=== PATIENT | female | born 1965 ===

== ENCOUNTER 2017-05-20 06:49 | Day surgery (SDC) | payer MEDICARE ==
[~2017-05-20 06:49] MED LIST: ANCEF/STERILE WATER 2 GM/20 ML 2 GM/20 ML SYRINGE IV NR; NACL 0.9% 1000 ML 1,000 ML IV SCH
[2017-05-20 07:52] LABS: Basophils # (Auto) 0.1 K/mm3 (0.0-0.1); Basophils % (Auto) 1.2 % (0.0-1.8); Eosinophils # (Auto) 0.2 K/mm3 (0.0-0.4); Eosinophils % (Auto) 4.4 % (0.0-4.3); Hematocrit 38.2 % (30.3-42.9); Hemoglobin 12.5 gm/dl (10.1-14.3); Lymphocytes # (Auto) 1.2 K/mm3 (1.2-5.4); Lymphocytes % (Auto) 25.1 % (13.4-35.0); Mean Corpuscular HGB Conc 33 % (30-34); Mean Corpuscular Hemoglobin 32 pg (28-32); Mean Corpuscular Volume 97 fl (79-97); Monocytes # (Auto) 0.8 K/mm3 (0.0-0.8); Monocytes % (Auto) 15.9 % (0.0-7.3); Red Blood Count 3.94 M/mm3 (3.65-5.03); Red Cell Distribution Width 17.5 % (13.2-15.2)
[2017-05-20 07:53] LABS: Platelet Count 70 K/mm3 (140-440)
[2017-05-20] MEDS ORDERED: NACL 0.9% 500 ML 500 ML IV SCH (08:00)
[2017-05-20 08:01] LABS: INR 1.2 (0.87-1.13)
[2017-05-20 08:02] LABS: Partial Thromboplastin Time 36.4 Sec. (24.2-36.6)
[2017-05-20 08:10] LABS: BUN/Creatinine Ratio 30; Blood Urea Nitrogen 15 mg/dL (7-17); Calcium 7.6 mg/dL (8.4-10.2); Hemolysis Index 8
[2017-05-20] MEDS ORDERED: SUBLIMAZE ONE (08:34)
[2017-05-20] MEDS ORDERED: VERSED ONE (08:34)
[2017-05-20] MEDS ORDERED: NACL 0.9% 500 ML 500 ML ONE (08:34)
[2017-05-20] MEDS ORDERED: NACL 0.9% 500 ML IR ONE (08:35)
[2017-05-20] MEDS ORDERED: XYLOCAINE 2% INFILTRATI ONE (08:35)
[2017-05-20] MEDS ORDERED: LEVAQUIN 500MG/100ML 500 MG/100 ML BAG IV ONE (08:50)
[2017-05-20] MEDS ORDERED: ANCEF/STERILE WATER 2 GM/20 ML 2 GM/20 ML SYRINGE IV ONE (08:50)
[2017-05-20] MEDS ORDERED: ALBURX 25% (ALBUMIN) IV ONE ×4 (09:00→10:00)
--- NOTE | 2017-05-20 10:32 | Short Stay Summary ---
Short Stay Documentation Date of service: 05/20/17 Narrative H&P: 51-year-old female with intractable ascites, intermittent hepatic encephalopathy , and end-stage renal disease intermittently on hospice. She is not a candidate for a TIPS procedure given the hepatic encephalopathy. Her heat treater apprentice, Dr. Pepe, requested tunneled peritoneal catheter for symptomatic relief of ascites. Patient will be soon transitioning to hospice care. - History Past Medical History: liver disease (ESLD) - Allergies and Medications Current Medications: Allergies morphine Allergy (Severe, Verified 05/20/17 07:16) Swelling- tongue and throat Home Medications Medication Instructions Recorded Confirmed Last Taken Type Baclofen [Lioresal] 10 mg PO TID 05/20/17 05/20/17 05/19/17 History Famotidine [Pepcid] 20 mg PO BID 05/20/17 05/20/17 05/19/17 History Furosemide [Lasix] 20 mg PO QDAY 05/20/17 05/20/17 05/19/17 History Lactulose [Constulose] 10 gm PO BID 05/20/17 05/20/17 05/19/17 History Potassium Chloride [Klor-Con 10] 10 meq PO QDAY 05/20/17 05/20/17 05/19/17 History Spironolactone [Aldactone] 50 mg PO QDAY 05/20/17 05/20/17 05/19/17 History Active Medications Cefazolin Sodium (Ancef/Sterile Water 2 Gm/20 Ml) 2 gm in 20 mls @ 80 mls/hr IV PREOP NR PRN Reason: Protocol Stop: 05/20/17 23:59 Sodium Chloride (Nacl 0.9% 500 Ml) 500 mls @ 50 mls/hr IV DIRECT JESSICA Last Admin: 05/20/17 08:50 Dose: 50 mls/hr - Physical exam General appearance: no acute distress Lungs: Normal air movement Gastrointestinal: distended (ascites) - Brief post op/procedure progress note Date of procedure: 05/20/17 Pre-op diagnosis: Intractable ascites Post-op diagnosis: same Procedure: tunneled ASPIRA peritoneal catheter Anesthesia: local (w/ conscious sedation) Surgeon: JESSE WALDRON Estimated blood loss: minimal Condition: stable - Hospital course Hospital course: Ready for discharge. - Disposition Condition at discharge: Stable Disposition: [id number] HOME UNDER HOME HLTH - Discharge Diagnoses (1) End stage liver disease Status: Acute (2) Ascites Status: Acute Short Stay Discharge Plan Activity: advance as tolerated Weight Bearing Status: Weight Bear as Tolerated Diet: low salt, other (restrict fluid to 1.5 L per day) Wound: keep clean and dry (DO NOT GET CATHETER WET ; MUST TAKE SPONGE BATHS, NO SHOWERS) Follow up with: JESSE WALDRON MD [Primary Care Provider] - 7 Days
--- NOTE | 2017-05-20 10:39 | Operative Report ---
Operative Report Operative Report: EXAM: 1. Ultrasound-guided access of the right upper quadrant of the peritoneal cavity 2. Placement of a tunneled cuffed peritoneal catheter (ASPIRA) 3. Removal of 5.5 L of straw yellow colored fluid from the peritoneal cavity DATE: 05/20/17 [employer]ATION [employer]OL[employer] INSTRUCTOR: JESSE WALDRON MD INDICATION: 51 year old female with end stage liver disease with refractory ascites requiring large volume paracentesis. Intermittently in hospice with discharge back to home health to allow for paracentesis with readmission back to hospice. History of hepatic encephalopathy precludes TIPS. Request by her technology director for tunneled peritoneal catheter. MEDICATIONS: Please see nursing report for full details. DEVICES: None CONTRAST: None PROCEDURE: The risks, benefits, and alternatives were discussed with the patient; written informed consent was obtained. The patient was brought to the angiography suite and placed in a supine position. The patient was prepped and draped in a sterile fashion. Ultrasound was used to evaluate the abdomen which demonstrated ascitic fluid. I anesthetized the abdomen. The right upper quadrant of the peritoneal cavity was accessed with a 21-gauge micropuncture needle under direct ultrasound guidance. 0.018 inch wire was passed into the peritoneal cavity. 5 [place]ian transitional dilator was exchanged with the needle. Wire and inner dilator were removed. 0.035 inch Amplatz wire was advanced through the transitional dilator into the peritoneal cavity. Flow switch was advanced over the wire and used to lock the Amplatz wire on the transitional dilator. An appropriate dermatotomy site was selected medial and slightly superior to the puncture site. The area was anesthetized with 1% lidocaine. The track was anesthetized with 1% lidocaine. Dermatotomy was made. The ASPIRA catheter was connected to the metal tunneler and used to tunnel from the dermatotomy to the peritoneal puncture site. Over the Amplatz wire, the peritoneal puncture site was dilated with ultimate placement of a peel-away sheath and removal of the wire and introducer. The catheter was advanced through the peritoneal peel-away sheath into the peritoneal cavity. The sheath was broken and pulled away. The catheter was clamped and the plastic stiffener was removed. The catheter was cut and attached to the appropriate hub. The puncture site was then closed with 3-0 Vicryl with deep interrupted and 4-0 Vicryl subcuticular closure with overlying Dermabond and Steri-Strips. Sterile dressing consisting of 4 x 4 and Tegaderm were applied. 5.5 L of peritoneal fluid was drained through the catheter. No more fluid could be drained. The catheter was secured with 2-0 Ethilon. Sterile dressing consisting of drain gauze and overlying gauze with Tegaderm were applied to the dermatotomy site. The patient tolerated the procedure well. No immediate postprocedural complications. FINDINGS: Please see procedure note above. Ultrasound guided access of the peritoneal cavity and placement of a right sided tunneled cuffed peritoneal catheter was performed with fluoroscopic and sonographic guidance. IMPRESSION: 1. Successful placement of a right sided tunneled cuffed peritoneal catheter with sonography and fluoroscopy. 2. Removal of 5.5 L of straw yellow colored fluid from the right peritoneal cavity.
[2017-05-20 11:18] VITALS: BP 111/46
== END 2017-05-20 11:45 | disposition home health service (06) ==
LOC: CATHLABREC 06:49
PROVIDERS: ATTEND Radiology Diagnostic Radiology
DX: R18.8 Other ascites (principal); K74.60 Unspecified cirrhosis of liver; K72.90 Hepatic failure, unspecified without coma; I12.0 Hypertensive chronic kidney disease with stage 5 chronic kidney disease or end stage renal disease; N18.6 End stage renal disease; F17.200 Nicotine dependence, unspecified, uncomplicated; B19.20 Unspecified viral hepatitis C without hepatic coma; Z88.6 Allergy status to analgesic agent
CPT/HCPCS: 33010; 36415; 49418; 80048; 85025; 85610; 85730; 99156; 99157; C1769; J0690; J1956; J2250; J3010; J7040; P9047